=== PATIENT | female | born 1960 | race Two or more races ===

== ENCOUNTER 2018-02-04 17:44 | Observation (INO) | payer MEDICAID ==
[~2018-02-04] VITALS: Ht 162.6 cm; Wt 77.3 kg
[2018-02-04] MEDS ORDERED: PALI1.5T PO (18:16)
[2018-02-04] MEDS ORDERED: CLON1TAB PO (18:16)
[2018-02-04] MEDS ORDERED: DULO60CA7 PO (18:16)
[2018-02-04 18:22] LABS: BASOPHILS # (AUTO) 0.06 x10^3/uL (0-0.1); BASOPHILS % (AUTO) 1 % (0-1); EOSINOPHILS # (AUTO) 0.05 x10^3/uL (0-0.4); EOSINOPHILS % (AUTO) 1 % (1-7); LYMPHOCYTES # (AUTO) 1.42 x10^3/uL (1-3.4); LYMPHOCYTES % (AUTO) 20 % (22-44); MD NO; MEAN CORPUSCULAR HEMOGLOBIN 32.3 pg (27.0-34.8); MEAN CORPUSCULAR HGB CONC 34.3 g/dL (32.4-35.8); MEAN CORPUSCULAR VOLUME 94.3 fL (80-100); MEAN PLATELET VOLUME 11.1 fL (7.4-10.4); MONOCYTES # (AUTO) 0.55 x10^3/uL (0.2-0.8); MONOCYTES % (AUTO) 8 % (2-9); NEUTROPHILS # (AUTO) 4.92 x10^3/uL (1.8-6.8); NEUTROPHILS % (AUTO) 70 % (42-75); PLATELET COUNT 186 x10^3/uL (130-400); RED BLOOD COUNT 4.84 x10^6/uL (3.82-5.3); RED CELL DISTRIBUTION WIDTH 13.1 % (9.6-15.2)
[2018-02-04 18:33] LABS: ALANINE AMINOTRANSFERASE 22 U/L (12-78); ALBUMIN 3.7 g/dL (3.4-5.0); ANION GAP 8 mmol/L (5-15); CALCIUM 8.9 mg/dL (8.5-10.1); CHLORIDE 111 mmol/L (98-107); CREATININE 0.85 mg/dL (0.55-1.02); SALICYLATE LEVEL 4.2 mg/dL (2.8-20.0)
[2018-02-04 18:35] LABS: ALKALINE PHOSPHATASE 85 U/L (45-117); BILIRUBIN,TOTAL 0.6 mg/dL (0.2-1.0); TOTAL PROTEIN 6.7 g/dL (6.4-8.2)
[2018-02-04 18:37] LABS: ACETAMINOPHEN < 2 mcg/mL (10-30)
[2018-02-04] MEDS ORDERED: POTASSIUM CHLORIDE 20 MEQ TAB.ER.PRT PO ONE (19:00)
[2018-02-04] MEDS ORDERED: POTASSIUM CHLORIDE 20 MEQ TAB.ER.PRT ONE (20:11)
[2018-02-04] MEDS ORDERED: ZIPRASIDONE 20 MG INJ IM PRN (23:30)
[2018-02-04] MEDS ORDERED: ZIPRASIDONE 20 MG INJ IM ONE (23:30)
[2018-02-04 23:32] LABS: AMPHETAMINE SCREEN, URINE Positive (Negative); BARBITURATE SCREEN, URINE Negative (Negative); BENZODIAZEPINE SCREEN, URINE Positive (Negative); CANNABINOID SCREEN, URINE Positive (Negative); COCAINE SCREEN, URINE Negative (Negative); METHADONE SCREEN, URINE Negative (Negative); OPIATE SCREEN, URINE Negative (Negative)
[2018-02-05] MEDS ORDERED: BISACODYL 10 MG SUPP PR PRN
[2018-02-05] MEDS ORDERED: ZIPRASIDONE 20 MG INJ IM PRN
[2018-02-05] MEDS ORDERED: ONDANSETRON ODT 4 MG PO PRN
[2018-02-05] MEDS ORDERED: POLYETHYLENE GLYCOL 17 GM PACKET PO PRN
[2018-02-05] MEDS ORDERED: DIPHENHYDRAMINE 50 MG CAPSULE PO PRN
[2018-02-05] MEDS ORDERED: LORazepam 1MG TABLET PO PRN
[2018-02-05 00:24] VITALS: BP 112/71
[2018-02-05] MEDS: NICOTINE 14MG/24 HR PATCH.TD24 TD SCH (01:25)
[2018-02-05 07:20] VITALS: BP 116/67
[2018-02-05] MEDS: SENNA/DOCUSATE TABLET PO SCH (08:55)
[2018-02-05] MEDS: DULOXETINE 30 MG CAPSULE.DR PO SCH (08:55)
[2018-02-05] MEDS: LORazepam 1MG TABLET PO PRN (10:51)
[2018-02-05 12:45] LABS: ANION GAP 5 mmol/L (5-15); CALCIUM 8.5 mg/dL (8.5-10.1); CHLORIDE 111 mmol/L (98-107); CREATININE 0.69 mg/dL (0.55-1.02)
[2018-02-05 19:29] VITALS: BP 122/77
[2018-02-06] MEDS: NICOTINE 14MG/24 HR PATCH.TD24 TD SCH ×2 (01:59→20:47)
[2018-02-06] MEDS: LORazepam 1MG TABLET PO PRN (07:37)
[2018-02-06] MEDS: ACETAMINOPHEN 325 MG TABLET PO PRN (07:39)
[2018-02-06 07:40] VITALS: BP 116/76
[2018-02-06] MEDS: SENNA/DOCUSATE TABLET PO SCH (08:00)
[2018-02-06] MEDS: DULOXETINE 30 MG CAPSULE.DR PO SCH (08:00)
[2018-02-06] MEDS: POTASSIUM CHLORIDE 20 MEQ TAB.ER.PRT PO SCH (17:29)
[2018-02-06] MEDS: PALIPERIDONE 3 MG TAB.ER.24 PO SCH (17:29)
[2018-02-06 19:52] VITALS: BP 130/86
[2018-02-07] MEDS: LORazepam 1MG TABLET PO PRN ×2 (02:53→13:41)
[2018-02-07 05:02] LABS: ANION GAP 7 mmol/L (5-15); CHLORIDE 111 mmol/L (98-107); CREATININE 0.71 mg/dL (0.55-1.02)
[2018-02-07 07:15] VITALS: BP 144/95
[2018-02-07] MEDS: POTASSIUM CHLORIDE 20 MEQ TAB.ER.PRT PO SCH (08:12)
[2018-02-07] MEDS: PALIPERIDONE 3 MG TAB.ER.24 PO SCH (08:12)
[2018-02-07] MEDS: SENNA/DOCUSATE TABLET PO SCH (08:13)
[2018-02-07] MEDS: DULOXETINE 30 MG CAPSULE.DR PO SCH (08:13)
[2018-02-07] MEDS: ACETAMINOPHEN 325 MG TABLET PO PRN (08:20)
[2018-02-07 09:24] VITALS: BP 144/95
[2018-02-07] MEDS ORDERED: POTASSIUM CHLORIDE 20 MEQ TAB.ER.PRT PO ONE (13:30)
== END 2018-02-07 15:35 ==
LOC: ED 19:07 → EDIP 23:12 → INTOOBSV 23:12 → 3E 02-05 00:22
PROVIDERS: ADMIT Internal Medicine; ATTEND Internal Medicine
DX: R45.851 Suicidal ideations (principal); F23 Brief psychotic disorder; E87.6 Hypokalemia; F17.210 Nicotine dependence, cigarettes, uncomplicated; F12.20 Cannabis dependence, uncomplicated; F15.20 Other stimulant dependence, uncomplicated; F33.3 Major depressive disorder, recurrent, severe with psychotic symptoms; Z81.1 Family history of alcohol abuse and dependence
CPT/HCPCS: 36415; 80048; 80053; 80307; 80329; 83735; 85025; 99285; G0378; G0480